=== PATIENT | female | born 1995 | race Caucasian/White ===

== ENCOUNTER → 2022-12-08 13:08 | Outpatient (REF) | payer BC, SELFPAY | LOC: PNTC 13:08 | PROVIDERS: ATTENDING PHYSICIAN Obstetrics & Gynecology | DX: O36.8390 Maternal care for abnormalities of the fetal heart rate or rhythm, unspecified trimester, not applicable or unspecified (principal) | CPT/HCPCS: 59025 ==

== ENCOUNTER 2023-08-05 21:23 | Emergency (ER) | payer BC, SELFPAY ==
[2023-08-05 21:30] VITALS: BP 85/44
[2023-08-05 21:39] VITALS: BP 108/65; BMI 25.0
[2023-08-05 21:52] LABS: % Basophils 0.4 % (0-2); % Eosinophils 2.6 % (0-6); % Immature Granulocytes 0.4 % (0-0.5); % Monocytes 5.6 % (1.7-9.3); Absolute Basophils 0.1 10^3/uL (0-0.2); Absolute Eosinophils 0.4 10^3/uL (0-0.7); Absolute Immature Granulocytes 0.1 10^3/uL (0-0.05); Absolute Lymphocytes 2.9 10^3/uL (1.2-3.4); Absolute Monocytes 0.9 10^3/uL (0.1-0.6); Hematocrit 38.8 % (37.0-47.0); Hemoglobin 13.4 g/dL (12.0-16.0); Mean Corp Hgb Conc. 34.5 g/dL (33.0-37.0); Mean Corpuscular Hgb 29.1 pg (27.0-31.0); Mean Corpuscular Volume 84.3 fL (81.0-99.0); Mean Platelet Volume 9.6 fL (7.4-10.4); Nucleated Red Blood Cells % 0 %; Platelet Count 334 10^3/uL (130-400); Red Cell Dist. Width 13.4 % (11.5-14.5); White Blood Cell Count 15.3 10^3/uL (4.8-10.8)
[2023-08-05] MEDS: TORADOL 15 MG IV (21:54)
[2023-08-05] MEDS: NSS 500 IV (21:55)
[2023-08-05 22:10] LABS: ALT (SGPT) 14 U/L (0-35); AST (SGOT) 21 U/L (14-36); Albumin 4.2 g/dl (3.5-5.0); Alkaline Phosphatase 67 U/L (38-126); Blood Urea Nitrogen 9 mg/dl (7-17); Calcium 9.8 mg/dl (8.4-10.2); Carbon Dioxide 24 mmol/L (22-30); Chloride 104 mmol/L (98-107); Estimated Creatinine Clearance 108 ml/min; Glucose 74 mg/dl (70-99); Potassium 3.3 mmol/L (3.5-5.1); Sodium 139 mmol/L (135-145); Total Bilirubin 0.6 mg/dl (0.2-1.3); Total Protein 6.6 g/dl (6.3-8.2); eGFR > 60.00
--- NOTE | 2023-08-05 22:10 | ED.GENMED ---
History of Present Illness
General
Chief Complaint: Musculo-Skeletal Complaint
Source: patient
Time Seen by Provider: 08/05/23 21:46
History of Present Illness
History of Present Illness:
27-year-old female presents emergency room for evaluation of left ankle pain. Patient also had a syncopal episode. Patient states she stepped on a dog bone that was on the floor causing her to twist her ankle. She did not strike her head. She
did not result but began to feel lightheaded and nauseous due to the pain in her ankle. She did have a syncopal event. Upon arrival here to the emergency room she was noted to be pale and clammy. She was hypotensive in triage. When she was laid
flat on the stretcher given cold compresses she began to feel much better. Patient denies any chest pain, shortness of breath. She did bump her head when she passed out but does not have a headache currently.
Past History
Past History
ED Past Medical History: Asthma
ED Past Surgical History: None
Social History
Tobacco: Former smoker (Vaping)
Alcohol: None
Personal: Single
Living: with family
Phy Exam
Physical Exam
Physical Exam:
General: Awake, Alert, Oriented X3. No acute distress.
Vitals: unremarkable
Head: Atraumatic
Eyes: Pupils equal, EOMI
Throat: Airway intact, no exudates
Neck: Trachea midline
Lungs: Clear and equal b/l
Heart: Regular rate, no murmurs
Abd: Soft, Nontender, No pulsatile mass
Neuro: Nonfocal
Skin: Warm, dry, no rash
Extremities: pulses equal b/l, left ankle has tenderness to palpation both medial and lateral malleoli.
Course
Orders/Labs/Results
Orders:
Orders
08/05/23 21:44
CMP [Comprehensive Metabolic Panel] Urgent
Complete Blood Count/With Diff Urgent
08/05/23 21:49
EKG [Electrocardiogram (*1)] Urgent
Reason for Study: Tachycardia
EKG- Treatment ONCE
08/05/23 21:50
0.9% Sodium Chloride 500 ml [Nss] 500 ml IV BOLUS
Ketorolac [Toradol] 15 mg IV NOW STA
08/05/23 22:10
CR Ankle - Left Min 3 Views Urgent
Reason For Exam: pain after inversion
Abnormal Lab Results
08/05/23
21:44
WBC 15.3 H 10^3/uL
(4.8-10.8)
Abs Immat Gran (auto) 0.1 H 10^3/uL
(0-0.05)
Absolute Neuts (auto) 11.0 H 10^3/uL
(1.4-6.5)
Absolute Monos (auto) 0.9 H 10^3/uL
(0.1-0.6)
Lymphocytes % 19.0 L %
(20.5-51.1)
Potassium 3.3 L mmol/L
(3.5-5.1)
08/05/23 21:44
08/05/23 21:44
Vital Signs
Initial and Last Documented VS:
Initial Vital Signs
Pulse Resp BP Pulse Ox
86 18 85/44 98
08/05/23 21:30 08/05/23 21:30 08/05/23 21:30 08/05/23 21:30
Last Documented Vital Signs
Pulse Resp BP Pulse Ox
74 16 108/65 100
08/05/23 21:39 08/05/23 21:39 08/05/23 21:39 08/05/23 21:45
MDM/Problems Addressed
Differential Diagnosis Includes:
Fracture, sprain, vasovagal syncope
MDM/Problems Addressed:
Patient twisted her ankle and then passed out. The syncopal episode I think is probably vasovagal. EKG here shows sinus rhythm without any abnormalities. Hemoglobin is normal. X-ray of the ankle shows no fracture. Will place her in a Aircast
have her weight-bear as tolerated. Follow-up with primary care provider.
*Radiology
Radiology exam reviewed: preliminary read by ED provider (Personally reviewed the patient's ankle x-ray and see no fracture or other acute abnormalities)
*Pulse Oximetry
Patient hypoxic: no
*EKG
Interpreted by ED Provider?: Yes
Interpretation: normal
Heart Rate: 70
Rate: normal
Rhythm: sinus
Melcroft: normal axis
Interval: normal interval
QRS Pattern: normal QRS
Ischemia: no ischemia
*Car Scrubber Interpretation
Rate: normal
Interpretation: normal
Rhythm: sinus
*Critical Care Note
Total Time (30-74mins, 75-104mins- exclusive of procedures): Not Applicable
ED Attending Note
-
Portions of this chart may have been created with voice recognition software.� Occasional wrong word or��sound alike� substitutions may have occurred due to the inherent limitations of voice recognition software.
Discharge Plan
Departure
Patient Disposition: Home (Routine Discharge)
Date of Disposition: 08/05/23
Time of Disposition: 22:50
Patient with high blood pressure during this ER visit?: No
Condition: Good
Discharge Problem:
Ankle sprain, Syncope, vasovagal
Instructions: Syncope (Fainting) (DC), Ankle Sprain ED
Prescriptions:
No Action
fluoxetine [Prozac] 20 mg Capsule
20 mg PO DAILY
ibuprofen 600 mg Tablet
600 mg PO Q6HPRN PRN (Reason: moderate pain/cramps) Qty: 90 0RF
1 tab PO DAILY
Referrals:
Linda Harris DO [Family Provider] -
Interventions
Interventions:
*Risk Screen - Suicide Last Done: 08/05/23 21:40
*General Assessment Last Done: 08/05/23 21:40
*Neglect/Abuse Screening Last Done: 08/05/23 21:40
ED- Fall Risk Assessment Last Done: 08/05/23 21:40
*ED COVID-19 Vaccine History Last Done: 08/05/23 21:40
ED- Cardiac Assessment Last Done: 08/05/23 21:48
ED-Musculoskeletal Assessment Last Done: 08/05/23 21:48
ED- Neurological Assessment Last Done: 08/05/23 21:48
Discharge Date and Time
Print Language: ARMENIAN
== END 2023-08-05 23:14 | disposition home or self-care (01) ==
LOC: EMR 21:23
PROVIDERS: EMERGENCY PHYSICIAN Emergency Medicine; FAMILY PHYSICIAN Family Medicine
DX: S93.409A Sprain of unspecified ligament of unspecified ankle, initial encounter (principal); R55 Syncope and collapse; X50.1XXA Overexertion from prolonged static or awkward postures, initial encounter; J45.909 Unspecified asthma, uncomplicated; Z87.891 Personal history of nicotine dependence
CPT/HCPCS: 99283; 96374; 73610; 80053; 85025; 93005

== ENCOUNTER 2023-09-01 12:27 | Emergency (ER) | payer BC, SELFPAY ==
[2023-09-01 12:29] VITALS: BP 113/81
[2023-09-01 12:54] VITALS: BP 101/86
[2023-09-01 13:00] VITALS: BP 102/75
[2023-09-01] MEDS: PEPCID 20 MG IV (13:03)
[2023-09-01] MEDS: DECADRON 10 MG IV (13:03)
[2023-09-01] MEDS: BENADRYL 25 MG IV (13:03)
[2023-09-01] MEDS: NSS 1000 IV (13:03)
[2023-09-01] MEDS: ZOFRAN 4 MG IV (13:25)
--- NOTE | 2023-09-01 13:41 | ED.GENMED ---
History of Present Illness
General
Chief Complaint: Allergic Reaction
Source: patient
Time Seen by Provider: 09/01/23 12:48
History of Present Illness
History of Present Illness:
27yoF with a history of asthma presenting for evaluation of an allergic reaction. Patient was mowing the lawn onside and was stung by several bees less than an hour prior to arrival. She had some trouble swallowing and breathing. Mother gave her
25mg Benadryl prior to arrival and she is currently feeling improved. She denies any vomiting or diarrhea. No prior history of allergic reactions in the past.
Past History
Past History
ED Past Medical History: Asthma
ED Past Surgical History: None
Social History
Tobacco: Former smoker (Vaping)
Alcohol: None
Personal: Single
Living: with family
Phy Exam
General Physical Exam
General Presentation: well appearing and no apparent distress
General age: appears stated age
General Skin: warm and dry
General Habitus: normal
General Mental: alert
ENT Exam
ENT Exam: pharynx normal and swallowing well (Normal phonation.)
Additional ENT: No oropharyngeal swelling. Airway patent. Tolerating oral secretions.
Cardiovascular Exam
Cardiovascular Exam: regular rate/rhythm and no murmur
Pulmonary Exam
Pulmonary Exam: lungs clear, no respiratory distress, no crackles and no wheezing
Gastrointestinal Exam
Gastrointestinal Exam: non tender, soft and non distended
Skin Exam
Skin Exam: normal color, warm/dry and other (No urticaria)
Course
Orders/Labs/Results
Orders:
Orders
09/01/23 12:53
0.9% Sodium Chloride 1000 ml [Nss] 1,000 ml IV BOLUS
Dexamethasone Sod Phosphate [Decadron] 10 mg IV NOW STA
Diphenhydramine [Benadryl] 25 mg IV NOW STA
Famotidine [Pepcid] 20 mg IV NOW STA
09/01/23 13:11
Ondansetron Injectable [Zofran] 4 mg .ROUTE .STK-MED ONE
09/01/23 13:23
Ondansetron Injectable [Zofran] 4 mg IV NOW STA
Vital Signs
Initial and Last Documented VS:
Initial Vital Signs
Temp Pulse Resp BP Pulse Ox
98.2 F 94 24 113/81 99
09/01/23 12:29 09/01/23 12:29 09/01/23 12:29 09/01/23 12:29 09/01/23 12:29
Last Documented Vital Signs
Temp Pulse Resp BP Pulse Ox
98.2 F 50 22 84/60 97
09/01/23 12:29 09/01/23 14:45 09/01/23 14:45 09/01/23 14:00 09/01/23 14:45
MDM/Problems Addressed
Differential Diagnosis Includes:
27yoF here for an allergic reaction after being stung by several bees. Had some trouble swallowing/breathing earlier which is now improved. She is afebrile and hemodynamically stable. She is well appearing in no distress. Airway is patent and
phonation normal. Exam is reassuring. Differential diagnosis includes but is not limited to: allergic reaction, local reaction, anaphylaxis
Initial ED plan: IV Decadron, Benadryl, Pepcid, and fluid bolus.
*Critical Care Note
Total Time (30-74mins, 75-104mins- exclusive of procedures): Not Applicable
Update Note
Update Note:
Patient observed for several hours and she remains asymptomatic. She is stable for discharge. Supportive care discussed. Advised f/u with PCP and ED return precautions discussed. She was discharged in stable condition.
ED Attending Note
-
Portions of this chart may have been created with voice recognition software.� Occasional wrong word or��sound alike� substitutions may have occurred due to the inherent limitations of voice recognition software.
Discharge Plan
Departure
Patient Disposition: Home (Routine Discharge)
Date of Disposition: 09/01/23
Time of Disposition: 15:05
Patient with high blood pressure during this ER visit?: No
Discharge Problem:
Bee sting reaction
Instructions: Allergic Reaction ED
Prescriptions:
No Action
fluoxetine [Prozac] 20 mg Capsule
20 mg PO DAILY
ibuprofen 600 mg Tablet
600 mg PO Q6HPRN PRN (Reason: moderate pain/cramps) Qty: 90 0RF
1 tab PO DAILY
Referrals:
Linda Harris DO [Family Provider] -
Activity Restrictions/Additional Instructions:
Take Benadryl 25mg every 6 hours as needed.
Please follow-up with your family doctor on Sunday. Return to the ER with any new or worsening symptoms.
Interventions
Interventions:
*Risk Screen - Suicide Last Done: 09/01/23 12:42
*General Assessment Last Done: 09/01/23 12:29
*Neglect/Abuse Screening Last Done: 09/01/23 12:42
ED- Fall Risk Assessment Last Done: 09/01/23 15:21
*ED COVID-19 Vaccine History Last Done: 09/01/23 12:29
*Nursing Disposition Last Done: 09/01/23 15:21
ED- Cardiac Assessment Last Done: 09/01/23 12:43
ED- Pulmonary Assessment Last Done: 09/01/23 12:55
ED-Skin Assessment Last Done: 09/01/23 12:55
Discharge Date and Time
Discharge Date/Time: 09/01/23 15:23
Print Language: MACEDONIAN
[2023-09-01 14:00] VITALS: BP 84/60
== END 2023-09-01 15:23 | disposition home or self-care (01) ==
LOC: EMR 12:27
PROVIDERS: EMERGENCY PHYSICIAN Emergency Medicine; FAMILY PHYSICIAN Family Medicine
DX: T63.441A Toxic effect of venom of bees, accidental (unintentional), initial encounter (principal); J45.909 Unspecified asthma, uncomplicated; Z87.891 Personal history of nicotine dependence
CPT/HCPCS: 99282; 96374; 96375; 96361

== ENCOUNTER → 2024-02-27 14:46 | Outpatient (REF) | payer OTHER, SELFPAY | LOC: PNTC 14:46 | PROVIDERS: ATTENDING PHYSICIAN Nurse Practitioner Family | DX: O36.80X0 Pregnancy with inconclusive fetal viability, not applicable or unspecified (principal) | CPT/HCPCS: 76801; 76817 ==

== ENCOUNTER → 2024-03-26 14:52 | Outpatient (REF) | payer OTHER, SELFPAY | LOC: PNTC 14:52 | PROVIDERS: ATTENDING PHYSICIAN Obstetrics & Gynecology | DX: Z36.0 Encounter for antenatal screening for chromosomal anomalies (principal); Z36.82 Encounter for antenatal screening for nuchal translucency | CPT/HCPCS: 36415; 76801; 76813 ==

== ENCOUNTER → 2024-05-19 16:01 | Outpatient (REF) | payer OTHER, SELFPAY | LOC: PNTC 16:01 | PROVIDERS: ATTENDING PHYSICIAN Obstetrics & Gynecology | DX: O35.8XX0 Maternal care for other (suspected) fetal abnormality and damage, not applicable or unspecified (principal); O99.320 Drug use complicating pregnancy, unspecified trimester | CPT/HCPCS: 76811; 76817 ==

== ENCOUNTER → 2024-06-05 16:13 | Outpatient (REF) | payer OTHER, SELFPAY | LOC: PNTC 16:13 | PROVIDERS: ATTENDING PHYSICIAN Obstetrics & Gynecology | DX: O36.8390 Maternal care for abnormalities of the fetal heart rate or rhythm, unspecified trimester, not applicable or unspecified (principal) | CPT/HCPCS: 76815 ==

== ENCOUNTER → 2024-07-17 14:08 | Outpatient (REF) | payer OTHER, SELFPAY | LOC: PNTC 14:08 | PROVIDERS: ATTENDING PHYSICIAN Obstetrics & Gynecology; FAMILY PHYSICIAN Obstetrics & Gynecology | DX: Z34.90 Encounter for supervision of normal pregnancy, unspecified, unspecified trimester (principal) | CPT/HCPCS: 36415; 86850; 86900; 86901; 96372; J2790 ==

== ENCOUNTER 2024-08-25 20:00 | Observation (INO) | payer OTHER, SELFPAY | END 2024-08-25 21:39 | disposition home or self-care (01) | LOC: LDRP 20:00 | PROVIDERS: ADMITTING PHYSICIAN Student in an Organized Health Care Education/Training Program; FAMILY PHYSICIAN Family Medicine | DX: O36.8130 Decreased fetal movements, third trimester, not applicable or unspecified (principal); O32.1XX0 Maternal care for breech presentation, not applicable or unspecified; Z3A.34 34 weeks gestation of pregnancy | CPT/HCPCS: 76815; G0378 ==

== ENCOUNTER → 2024-09-17 15:19 | Outpatient (REF) | payer OTHER, SELFPAY | LOC: PNTC 15:19 | PROVIDERS: ATTENDING PHYSICIAN Obstetrics & Gynecology | DX: O36.8190 Decreased fetal movements, unspecified trimester, not applicable or unspecified (principal) | CPT/HCPCS: 59025; 76815 ==

== ENCOUNTER → 2024-09-22 11:00 | Outpatient (REF) | payer OTHER, SELFPAY | LOC: PNTC 11:00 | PROVIDERS: ATTENDING PHYSICIAN Obstetrics & Gynecology | DX: O36.60X0 Maternal care for excessive fetal growth, unspecified trimester, not applicable or unspecified (principal) | CPT/HCPCS: 36415; 76816 ==

== ENCOUNTER 2024-09-24 07:20 | Inpatient (IN) | payer OTHER, SELFPAY ==
[2024-09-24 07:31] VITALS: BP 112/71; BMI 33.3
[2024-09-24 07:59] LABS: Hematocrit 36.7 % (37.0-47.0); Hemoglobin 12.4 g/dL (12.0-16.0); Mean Corp Hgb Conc. 33.8 g/dL (33.0-37.0); Mean Corpuscular Volume 88.0 fL (81.0-99.0); Platelet Count 265 10^3/uL (130-400); Red Cell Dist. Width 17.2 % (11.5-14.5)
[2024-09-24] MEDS: TYLENOL 975 MG PO (08:36)
[2024-09-24] MEDS: ANCEF 10 IV (10:09)
[2024-09-24] MEDS: BICITRA 30 ML PO (10:09)
[2024-09-24] MEDS: BENADRYL 25 MG PO (17:10)
[2024-09-24] MEDS: ROXICODONE 5 MG PO (17:10)
[2024-09-24] MEDS: TORADOL 15 MG IV ×2 (18:04→23:50)
[2024-09-24] MEDS: COLACE 100 MG PO (20:26)
[2024-09-25 05:07] LABS: Hematocrit 30.8 % (37.0-47.0); Hemoglobin 10.1 g/dL (12.0-16.0); Mean Corp Hgb Conc. 32.8 g/dL (33.0-37.0); Mean Corpuscular Volume 89.5 fL (81.0-99.0); Platelet Count 249 10^3/uL (130-400); Red Cell Dist. Width 17.2 % (11.5-14.5)
[2024-09-25] MEDS: BENADRYL 25 MG PO (06:07)
[2024-09-25] MEDS: TORADOL 15 MG IV ×2 (06:07→11:44)
[2024-09-25] MEDS: ROXICODONE 5 MG PO (08:18)
[2024-09-25] MEDS: COLACE 100 MG PO ×2 (08:18→20:11)
[2024-09-25] MEDS: MYLICON 80 MG PO (08:19)
[2024-09-25] MEDS: PRENATAL PLUS 1 TABLET PO (08:19)
[2024-09-25] MEDS: PROZAC 20 MG PO (08:19)
--- NOTE | 2024-09-25 10:02 | W.PN.ANS.POP ---
Anesthesia Post Operative
- Anesthesia Post Op Note
Vital Signs Stable-See Nursing Note: Yes
Airway Patent: Yes
Adequate Pain Control: Yes
Change in Mental Status: No
Current Postoperative Nausea & Vomiting: No
Anesthesia Complications: No
General Anesthetic Recall: No
Unplanned Admission: No
Post Op Hydration Adequate: Yes
[2024-09-25] MEDS: TYLENOL 650 MG PO (16:14)
[2024-09-25] MEDS: RHOGAM 300 MCG IM (16:28)
[2024-09-25] MEDS: MOTRIN 600 MG PO (20:11)
[2024-09-25] MEDS: ROXICODONE 10 MG PO (20:12)
[2024-09-26] MEDS: TYLENOL 650 MG PO ×2 (01:19→12:22)
[2024-09-26] MEDS: MOTRIN 600 MG PO ×2 (02:27→07:56)
[2024-09-26] MEDS: PRENATAL PLUS 1 TABLET PO (07:50)
[2024-09-26] MEDS: COLACE 100 MG PO (07:50)
[2024-09-26] MEDS: PROZAC 20 MG PO (07:50)
[2024-09-26] MEDS: FEOSOL 325 MG PO (07:50)
--- NOTE | 2024-09-26 09:57 | W.DS.TRANS ---
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
-
Discharge Instructions:
Discharge Diagnosis/Procedures 39 wks; prior history shoulder
dystocia; Primary LTCS
Diet Regular
Activity No strenuous activity
Driving Restrictions No driving for 2 weeks
Bathing Restrictions OK to Shower
Instructions:
Stand-Alone Forms: LDRP Delivery
Changes to Home Medications: No
Discharge Medications:
DC Medications w/original date entered in [employer]
1 tab PO DAILY Supplement 09/24/22
fluoxetine 20 mg capsule (Prozac) 20 mg PO DAILY 12/13/22
Home Medication Changes
Pending Results: No
Total time spent discharging patient (in min): 15
[2024-09-26 13:03] LABS: Syphilis/T. pallidum Ab Reflex Negative (Negative)
== END 2024-09-26 15:18 | disposition home or self-care (01) | DRG 788 ==
LOC: LDRP 07:20
PROVIDERS: Student in an Organized Health Care Education/Training Program; ADMITTING PHYSICIAN Obstetrics & Gynecology
PROC: 10D00Z1 Extraction of Products of Conception, Low, Open Approach (ICD-10-PCS; 2024-09-24)
PROC: 3E0234Z Introduction of Serum, Toxoid and Vaccine into Muscle, Percutaneous Approach (ICD-10-PCS; 2024-09-25)
DX: O99.344 Other mental disorders complicating childbirth (principal); F41.9 Anxiety disorder, unspecified; D50.9 Iron deficiency anemia, unspecified; O99.02 Anemia complicating childbirth; J45.909 Unspecified asthma, uncomplicated; Z3A.39 39 weeks gestation of pregnancy; Z37.0 Single live birth; O99.334 Smoking (tobacco) complicating childbirth; O99.52 Diseases of the respiratory system complicating childbirth; F17.290 Nicotine dependence, other tobacco product, uncomplicated; O77.0 Labor and delivery complicated by meconium in amniotic fluid; Z91.030 Bee allergy status; Z82.49 Family history of ischemic heart disease and other diseases of the circulatory system
CPT/HCPCS: 36415; 85027; 85461; 86780; 86850; 86900; 86901; 88307; J2790